=== PATIENT | male | born 1960 | race African-American/Black ===

== ENCOUNTER 2019-05-08 14:31 | Inpatient (IN) | payer OTHER ==
[2019-05-08 16:05] VITALS: BMI 25.8
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
[2019-05-08] MEDS ORDERED: IBUPROFEN 400 MG TABLET (FP) PO PRN (19:30)
[2019-05-08] MEDS ORDERED: MAGNESIUM HYDROX 2400MG/30ML ORAL SUSPENSION 30 ML CUP PO PRN (19:30)
[2019-05-08] MEDS ORDERED: BISMUTH SUBSALICYLATE 524 MG/30 ML UD PO PRN (19:30)
[2019-05-08] MEDS ORDERED: MAG HYDROX/AL HYDROX/SIMETH 30 ML UNIT-DOSE CUP PO PRN (19:30)
[2019-05-08] MEDS ORDERED: METHOCARBAMOL 500 MG TABLET PO PRN (19:30)
[2019-05-08] MEDS ORDERED: hydrOXYzine PAMOATE 25 MG CAPSULE (FP) PO PRN (19:30)
[2019-05-08] MEDS ORDERED: MENTHOL/PHENOL 1 EACH UD MM PRN (19:30)
[2019-05-08] MEDS ORDERED: MAGNESIUM CITRATE 300 ML BOTTLE PO PRN (19:30)
[2019-05-08] MEDS ORDERED: MELATONIN 5 MG TABLETS PO PRN (19:30)
[2019-05-08] MEDS ORDERED: NICOTINE POLACRILEX 2 MG GUM BUC PRN (19:30)
[2019-05-08] MEDS ORDERED: ACETAMINOPHEN 325 MG TABLET (FP) PO PRN ×2 (19:30)
--- NOTE | 2019-05-08 19:40 | PN ---
Teaching Attending Note Name of Resident: Anna Marie Cunningham ATTENDING PHYSICIAN STATEMENT I saw and evaluated the patient. I reviewed the resident's note and discussed the case with the resident. I agree with the resident's findings and plan as documented. SUBJECTIVE:pt here requesting detox from etoh use , reports drinking 20 beers / day x 37 years , latest use yesterday 5 am , reports blackouts, occasional tremors , denies seizures . cocaine : 600-700 $/week. cannabis : every 4-5 days . tobacco : 15 cigs/day - 1.5 ppd PMH : HTN, PE on Eliquis and ASA reports not taking meds in > 1 week , no PCP , usually gets meds from [facility]. HLD , depression. PSH: skin grafts OBJECTIVE: wnwd , li U E tremors , extensive scarring li U E/ LE , F contracture and deformity LLE Vital Signs - 24 hr 05/08/19 15:49 Temperature 99 F Pulse Rate 101 H Respiratory 20 Rate Blood Pressure 137/85 ASSESSMENT AND PLAN: Alcohol abuse - Valium detox med reconciliation to be done in am as pt's pharmacy of record is currently closed .
[2019-05-08] MEDS: THIAMINE HCL 100 MG TABLET (FP) PO SCH (21:48)
[2019-05-08] MEDS: diazePAM 5 MG TABLET PO SCH (21:48)
[2019-05-09] MEDS: diazePAM 5 MG TABLET PO SCH ×3 (06:09→22:20)
[2019-05-09 10:00] LABS: ALBUMIN 3.2 g/dl (3.4-5.0); BILIRUBIN,TOTAL 0.3 mg/dL (0.2-1); BLOOD UREA NITROGEN 24.8 mg/dL (7-18); CALCIUM 8.4 mg/dL (8.5-10.1); CREATININE 1.2 mg/dL (0.55-1.3); POTASSIUM 3.7 mmol/L (3.5-5.1)
[2019-05-09 10:11] LABS: HEMATOCRIT 42.7 % (35.4-49); HEMOGLOBIN 14.2 GM/dL (11.7-16.9); MCH 31.8 pg (25.7-33.7); MCHC 33.3 g/dl (32.0-35.9); MEAN CELL VOLUME 95.5 fl (80-96); MEAN PLT VOLUME 8.9 fl (7.5-11.1); PLATELET COUNT 263 K/MM3 (134-434); RBC 4.47 M/mm3 (4.00-5.60); RDW 14.1 % (11.9-15.9); WHITE BLOOD COUNT 8.9 K/mm3 (4.0-10.0)
[2019-05-09] MEDS: PRENATAL VITAMINS W/ FOLIC ACID TABLET (FP) PO SCH (10:35)
[2019-05-09] MEDS: NICOTINE 21 MG/24 HOURS TOPICAL PATCH TD SCH (10:36)
[2019-05-09] MEDS ORDERED: FLU VACCINE QUAD 60 MCG/0.5 ML (MDV 19-20) IM ONE (12:00)
[2019-05-09] MEDS ORDERED: PNEUMOCOCCAL 23 VACCINE 0.5 ML VIAL IM ONE (12:00)
[2019-05-09] MEDS ORDERED: PNEUMOC 13-VAL CONJ-DIP CRM/PF 0.5 ML DISP.SYRIN IM ONE (12:00)
--- NOTE | 2019-05-09 15:00 | PN ---
[facility] CIWA - CIWA Score Nausea/Vomitin-Mild Nausea/No Vomiting Muscle Tremors: 2 Anxiety: 2 Agitation: 2 Paroxysmal Sweats: No Perspiration Orientation: 0-Oriented Tacttile Disturbances: 1-Very Mild Itch/Numbness Auditory Disturbances: 0-None Visual Disturbances: 0-None Headache: 2-Mild CIWA-Ar Total Score: 10 S Progress Note (SOAP) Subjective: alert,irritable,anxious,interrupted sleep Objective: 05/09/19 14:59 Vital Signs Temperature 96.7 F L 05/09/19 13:45 Pulse Rate 64 05/09/19 13:45 Respiratory Rate 18 05/09/19 13:45 Blood Pressure 126/73 05/09/19 13:45 O2 Sat by Pulse Oximetry (%) 05/09/19 14:59 Laboratory Last Values WBC 8.9 K/mm3 (4.0-10.0) 05/09/19 08:00 RBC 4.47 M/mm3 (4.00-5.60) 05/09/19 08:00 Hgb 14.2 GM/dL (11.7-16.9) 05/09/19 08:00 Hct 42.7 % (35.4-49) 05/09/19 08:00 MCV 95.5 fl (80-96) 05/09/19 08:00 MCH 31.8 pg (25.7-33.7) 05/09/19 08:00 MCHC 33.3 g/dl (32.0-35.9) 05/09/19 08:00 RDW 14.1 % (11.9-15.9) 05/09/19 08:00 Plt Count 263 K/MM3 (134-434) 05/09/19 08:00 MPV 8.9 fl (7.5-11.1) 05/09/19 08:00 Sodium 142 mmol/L (136-145) 05/09/19 08:00 Potassium 3.7 mmol/L (3.5-5.1) 05/09/19 08:00 Chloride 107 mmol/L (98-107) 05/09/19 08:00 Carbon Dioxide 27 mmol/L (21-32) 05/09/19 08:00 Anion Gap 7 MMOL/L (8-16) L 05/09/19 08:00 BUN 24.8 mg/dL (7-18) H 05/09/19 08:00 Creatinine 1.2 mg/dL (0.55-1.3) 05/09/19 08:00 Est GFR (CKD-EPI)AfAm 77.33 05/09/19 08:00 Est GFR (CKD-EPI)NonAf 66.72 05/09/19 08:00 Random Glucose 124 mg/dL (74-106) H 05/09/19 08:00 Calcium 8.4 mg/dL (8.5-10.1) L 05/09/19 08:00 Total Bilirubin 0.3 mg/dL (0.2-1) 05/09/19 08:00 AST 13 U/L (15-37) L 05/09/19 08:00 ALT 32 U/L (13-61) 05/09/19 08:00 Alkaline Phosphatase 113 U/L (45-117) 05/09/19 08:00 Total Protein 6.0 g/dl (6.4-8.2) L 05/09/19 08:00 Albumin 3.2 g/dl (3.4-5.0) L 05/09/19 08:00 RPR Titer Nonreactive (NONREACTIVE) 05/09/19 08:00 HIV 1&2 Antibody Screen Negative 05/09/19 08:00 HIV P24 Antigen Negative 05/09/19 08:00 Assessment: 05/09/19 14:59 withdrawal symptom Plan: continue detox valium regimen,encourage fluid,repeat bmp in am,fasting glucose in am
[2019-05-09] MEDS ORDERED: diphenhydrAMINE HCL 25 MG CAPSULE (FP) PO ONE (20:11)
[2019-05-09] MEDS: THIAMINE HCL 100 MG TABLET (FP) PO SCH (22:20)
[2019-05-09] MEDS: ATORVASTATIN CA 20 MG TABLET (FP) PO SCH (22:21)
[2019-05-09] MEDS: diphenhydrAMINE HCL 50 MG CAPSULE PO SCH (22:21)
[2019-05-10] MEDS: diazePAM 5 MG TABLET PO SCH ×2 (05:46→17:35)
[2019-05-10] MEDS ORDERED: PATIENT'S OWN MEDICATION (NON-FORMULARY) (Lisinopril/Hydrochlorothiazide [Lisinopril-Hctz PO SCH (10:00)
[2019-05-10] MEDS ORDERED: APIXABAN 5 MG TABLET PO ONE (10:00)
[2019-05-10] MEDS: LISINOPRIL 20 MG TABLET (FP) PO SCH (10:52)
[2019-05-10] MEDS: HYDROCHLOROTHIAZIDE 25 MG TABLET (FP) PO SCH (10:52)
[2019-05-10] MEDS: PRENATAL VITAMINS W/ FOLIC ACID TABLET (FP) PO SCH (10:52)
[2019-05-10] MEDS: ASPIRIN 81 MG CHEWABLE TABLETS PO SCH (10:52)
[2019-05-10 10:55] LABS: BLOOD UREA NITROGEN 14.8 mg/dL (7-18); CREATININE 0.9 mg/dL (0.55-1.3); POTASSIUM 3.7 mmol/L (3.5-5.1)
[2019-05-10] MEDS: NICOTINE 21 MG/24 HOURS TOPICAL PATCH TD SCH ×2 (11:42→11:46)
--- NOTE | 2019-05-10 13:30 | PN ---
S CIWA - CIWA Score Nausea/Vomitin-No Nausea/No Vomiting Muscle Tremors: None Anxiety: 2 Agitation: 0-Normal Activity Paroxysmal Sweats: 3 Orientation: 0-Oriented Tacttile Disturbances: 0-None Auditory Disturbances: 0-None Visual Disturbances: 0-None Headache: 1-Very Mild CIWA-Ar Total Score: 6 BHS Progress Note (SOAP) Subjective: c/o sweats, anxiety, and headache. Objective: 05/10/19 13:28 Vital Signs 05/10/19 05/10/19 06:48 09:29 Temperature 97.2 F L 98.2 F Pulse Rate 84 93 H Respiratory 18 18 Rate Blood Pressure 136/74 135/77 Laboratory Last Values WBC 8.9 K/mm3 (4.0-10.0) 05/09/19 08:00 RBC 4.47 M/mm3 (4.00-5.60) 05/09/19 08:00 Hgb 14.2 GM/dL (11.7-16.9) 05/09/19 08:00 Hct 42.7 % (35.4-49) 05/09/19 08:00 MCV 95.5 fl (80-96) 05/09/19 08:00 MCH 31.8 pg (25.7-33.7) 05/09/19 08:00 MCHC 33.3 g/dl (32.0-35.9) 05/09/19 08:00 RDW 14.1 % (11.9-15.9) 05/09/19 08:00 Plt Count 263 K/MM3 (134-434) 05/09/19 08:00 MPV 8.9 fl (7.5-11.1) 05/09/19 08:00 Sodium 142 mmol/L (136-145) 05/10/19 07:40 Potassium 3.7 mmol/L (3.5-5.1) 05/10/19 07:40 Chloride 108 mmol/L (98-107) H 05/10/19 07:40 Carbon Dioxide 26 mmol/L (21-32) 05/10/19 07:40 Anion Gap 7 MMOL/L (8-16) L 05/10/19 07:40 BUN 14.8 mg/dL (7-18) 05/10/19 07:40 Creatinine 0.9 mg/dL (0.55-1.3) 05/10/19 07:40 Est GFR (CKD-EPI)AfAm 109.50 05/10/19 07:40 Est GFR (CKD-EPI)NonAf 94.48 05/10/19 07:40 Random Glucose 113 mg/dL (74-106) H 05/10/19 07:40 Fasting Glucose 114 mg/dL (74-106) H 05/10/19 07:40 Calcium 8.0 mg/dL (8.5-10.1) L 05/10/19 07:40 Total Bilirubin 0.3 mg/dL (0.2-1) 05/09/19 08:00 AST 13 U/L (15-37) L 05/09/19 08:00 ALT 32 U/L (13-61) 05/09/19 08:00 Alkaline Phosphatase 113 U/L (45-117) 05/09/19 08:00 Total Protein 6.0 g/dl (6.4-8.2) L 05/09/19 08:00 Albumin 3.2 g/dl (3.4-5.0) L 05/09/19 08:00 RPR Titer Nonreactive (NONREACTIVE) 05/09/19 08:00 HIV 1&2 Antibody Screen Negative 05/09/19 08:00 HIV P24 Antigen Negative 05/09/19 08:00 Labs noted. Assessment: 05/10/19 13:28 AOX3, in no acute respiratory distress. Full ROM, ambulating in the unit. withdrawal symptoms. For d/c tomorrow. Plan: continue detox. D/C in AM.
[2019-05-10] MEDS: APIXABAN 5 MG TABLET PO SCH (15:24)
[2019-05-10] MEDS ORDERED: diphenhydrAMINE HCL 25 MG CAPSULE (FP) PO ONE (21:14)
[2019-05-10] MEDS: THIAMINE HCL 100 MG TABLET (FP) PO SCH (22:02)
[2019-05-10] MEDS: ATORVASTATIN CA 20 MG TABLET (FP) PO SCH (22:02)
[2019-05-10] MEDS: diphenhydrAMINE HCL 50 MG CAPSULE PO SCH (22:03)
[2019-05-10] MEDS: diazePAM 5 MG TABLET PO PRN (22:04)
[2019-05-11] MEDS ORDERED: diazePAM 5 MG TABLET PO ONE (06:00)
[2019-05-11 06:47] VITALS: TEMP 97
[2019-05-11 09:42] VITALS: BP 111/71; PULSE 84
[2019-05-11] MEDS: NICOTINE 21 MG/24 HOURS TOPICAL PATCH TD SCH (10:18)
[2019-05-11] MEDS: diazePAM 5 MG TABLET PO PRN (10:21)
[2019-05-11] MEDS: APIXABAN 5 MG TABLET PO SCH (10:21)
[2019-05-11] MEDS: ASPIRIN 81 MG CHEWABLE TABLETS PO SCH (10:22)
[2019-05-11] MEDS: PRENATAL VITAMINS W/ FOLIC ACID TABLET (FP) PO SCH (10:22)
[2019-05-11] MEDS: LISINOPRIL 20 MG TABLET (FP) PO SCH (10:22)
[2019-05-11] MEDS: HYDROCHLOROTHIAZIDE 25 MG TABLET (FP) PO SCH (10:22)
--- NOTE | 2019-05-11 11:59 | DS ---
[facility] Detox Discharge Summary Admission Date: 05/08/19 Discharge Date: 05/11/19 - History Present History: Alcohol Dependence Additional Comments: 58 years old male admitted on 05/08/19 for alcohol withdrawal sx management treated with valium detox regimen patient is alert oriented x 3 respiratory clear lung bilaterally on auscultation abdomen soft no rebound tenderness skin warm and dry - Physical Exam Results Vital Signs: Vital Signs Temperature 97 F L 05/11/19 09:41 Pulse Rate 84 05/11/19 09:41 Respiratory Rate 18 05/11/19 09:41 Blood Pressure 111/71 05/11/19 09:41 O2 Sat by Pulse Oximetry (%) Pertinent Admission Physical Exam Findings: alcohol withdrawal sx Laboratory Last Values WBC 8.9 K/mm3 (4.0-10.0) 05/09/19 08:00 RBC 4.47 M/mm3 (4.00-5.60) 05/09/19 08:00 Hgb 14.2 GM/dL (11.7-16.9) 05/09/19 08:00 Hct 42.7 % (35.4-49) 05/09/19 08:00 MCV 95.5 fl (80-96) 05/09/19 08:00 MCH 31.8 pg (25.7-33.7) 05/09/19 08:00 MCHC 33.3 g/dl (32.0-35.9) 05/09/19 08:00 RDW 14.1 % (11.9-15.9) 05/09/19 08:00 Plt Count 263 K/MM3 (134-434) 05/09/19 08:00 MPV 8.9 fl (7.5-11.1) 05/09/19 08:00 Sodium 142 mmol/L (136-145) 05/10/19 07:40 Potassium 3.7 mmol/L (3.5-5.1) 05/10/19 07:40 Chloride 108 mmol/L (98-107) H 05/10/19 07:40 Carbon Dioxide 26 mmol/L (21-32) 05/10/19 07:40 Anion Gap 7 MMOL/L (8-16) L 05/10/19 07:40 BUN 14.8 mg/dL (7-18) 05/10/19 07:40 Creatinine 0.9 mg/dL (0.55-1.3) 05/10/19 07:40 Est GFR (CKD-EPI)AfAm 109.50 05/10/19 07:40 Est GFR (CKD-EPI)NonAf 94.48 05/10/19 07:40 Random Glucose 113 mg/dL (74-106) H 05/10/19 07:40 Fasting Glucose 114 mg/dL (74-106) H 05/10/19 07:40 Calcium 8.0 mg/dL (8.5-10.1) L 05/10/19 07:40 Total Bilirubin 0.3 mg/dL (0.2-1) 05/09/19 08:00 AST 13 U/L (15-37) L 05/09/19 08:00 ALT 32 U/L (13-61) 05/09/19 08:00 Alkaline Phosphatase 113 U/L (45-117) 05/09/19 08:00 Total Protein 6.0 g/dl (6.4-8.2) L 05/09/19 08:00 Albumin 3.2 g/dl (3.4-5.0) L 05/09/19 08:00 RPR Titer Nonreactive (NONREACTIVE) 05/09/19 08:00 HIV 1&2 Antibody Screen Negative 05/09/19 08:00 HIV P24 Antigen Negative 05/09/19 08:00 lab noted glucose elevation - Treatment Hospital Course: Detox Protocol Followed, Detoxed Safely, Responded well, Discharged Condition Good, Rehab Referral Accepted Patient has Accepted [facility] Ref[facility] - Medication Discharge Medications: Ambulatory Orders Apixaban [Eliquis] 5 mg PO DAILY 05/08/19 Aspirin [ASA -] 81 mg PO DAILY 05/08/19 Atorvastatin Ca [Lipitor] 20 mg PO HS 05/08/19 Diphenhydramine [Benadryl Capsule -] 50 mg PO HS 05/08/19 Lisinopril/Hydrochlorothiazide [Lisinopril-Hctz 20-25 mg Tab] 1 each PO DAILY - Diagnosis (1) Alcohol dependence, uncomplicated Current Visit: Yes Status: Acute (2) Peripheral vascular disease Current Visit: Yes Status: Chronic (3) Hypertension Current Visit: Yes Status: Chronic Qualifiers: Hypertension type: essential hypertension Qualified Code(s): I10 - Essential (primary) hypertension (4) Hyperlipidemia Current Visit: Yes Status: Chronic Qualifiers: Hyperlipidemia type: unspecified Qualified Code(s): E78.5 - Hyperlipidemia , unspecified - AMA Did Patient Leave Against Medical Advice: No CIWA Score - CIWA Score Nausea/Vomitin-No Nausea/No Vomiting Muscle Tremors: 1-None Visible, but [place] Anxiety: 1-Mildly Anxious Agitation: 0-Normal Activity Paroxysmal Sweats: No Perspiration Orientation: 0-Oriented Tacttile Disturbances: 0-None Auditory Disturbances: 0-None Visual Disturbances: 0-None Headache: 0-None Present CIWA-Ar Total Score: 2
== END 2019-05-11 14:00 | disposition other institution (70) | DRG 774 ==
LOC: YASAS 14:31 → Y3N 19:50
PROVIDERS: ADMIT Allergy & Immunology; ATTEND Allergy & Immunology
PROC: HZ2ZZZZ Detoxification Services for Substance Abuse Treatment (ICD-10-PCS; principal; 2019-05-08)
DX: F10.230 Alcohol dependence with withdrawal, uncomplicated (principal); F14.20 Cocaine dependence, uncomplicated; F12.20 Cannabis dependence, uncomplicated; F17.210 Nicotine dependence, cigarettes, uncomplicated; I10 Essential (primary) hypertension; E78.5 Hyperlipidemia, unspecified; I73.9 Peripheral vascular disease, unspecified; Z86.711 Personal history of pulmonary embolism; Z79.01 Long term (current) use of anticoagulants; Z79.82 Long term (current) use of aspirin; Z91.013 Allergy to seafood; Z88.0 Allergy status to penicillin
CPT/HCPCS: 36415; 80048; 80053; 82947; 85027; 86593; 87389; 90732; G0009; Q2036

== ENCOUNTER 2019-05-11 13:52 | Inpatient (IN) | payer OTHER ==
--- NOTE | 2019-05-11 12:03 | HP ---
[facility] Rehab Assess/Revision - Admission History Admitted to Rehab from: [facility] Date of Admission to Rehab: 05/11/19 - Findings Detox History & Physical reviewed: Yes Concur with findings: Yes Comments/Additional Findings: transferred from detox to rehab admission as per protocol Inpatient Rehab Admission - Rehab Decision to Admit Inpatient rehab admission?: Yes - Initial Determination Are CD services needed?: Yes Free of communicable disease: Yes Not in need of hospitalization: Yes - Rehab Admission Criteria Previous failed treatment: Yes Poor recovery environment: Yes Comorbidities: Yes Lacks judgement: Yes Patient is meeting Inpatient Rehab admission criteria:: Yes
[~2019-05-11 13:52] MED LIST: LOPERAMIDE HCL 2 MG CAPSULE PO PRN; MAGNESIUM CITRATE 300 ML BOTTLE PO PRN; MAGNESIUM HYDROX 2400MG/30ML ORAL SUSPENSION 30 ML CUP PO PRN; MENTHOL/PHENOL 1 EACH UD MM PRN; NICOTINE POLACRILEX 4 MG GUM BC PRN; P-EPHED 60MG/TRIPROLIDI 2.5MG TABLET PO PRN
[2019-05-11] MEDS: ATORVASTATIN CA 20 MG TABLET (FP) PO SCH (21:02)
[2019-05-11] MEDS: THIAMINE HCL 100 MG TABLET (FP) PO SCH (21:02)
[2019-05-11] MEDS: MELATONIN 5 MG TABLETS PO PRN (21:03)
[2019-05-11] MEDS: MAG HYDROX/AL HYDROX/SIMETH 30 ML UNIT-DOSE CUP PO PRN (22:41)
--- NOTE | 2019-05-12 10:27 | PN ---
[facility] Progress Note Note: Pt is a 58 y/o male admitted to [address] [place] [address] rehab from [facility] [place] [facility] on 05/11/19 after completion. Pt is currently on Eliquis 5 mg po daily since from detox and this life underwriter called his home pharmacy today and medication list faxed to [address] [place] [address]. Pt was on Eliquis 10 mg po BID for 6 days then 5 mg po BID(verified from another faxed Rx from pharmacy by prescriber Dr. Halima Phillips ), last filled on 11/12/18(120 tabs x 30 days) . Copies in patient's chart. This life underwriter spoke to pt who stated he has no primary care provider and goes to the emergency room at [facility] or [facility] for care. Reports he has not been taking the Eliquis and was in "[facility] for 1 1/2 days 1/1/2 weeks ago and had comprehensive testings done- CTScan w/contrast, CXR,Holter monitor,EKG and stress test and they say my arteries were clean, no clot". He stated the doctor recommended to take the blood thinner but he said "why? I'm exercising,I' m all clear,why do I have to take blood thinner?". " Well If if I have to take it while I'm here(at [facility]), I'll take it. After I leave here, that's it. I' m not taking it". Pt is a poor historian and unable to provide timeline of treatment when asked by this life underwriter. This life underwriter called [facility] to speak with the prescribing doctor Dr. Halima Phillips at [phone] but unable to get through. No voicemail availbale and no response. Vital Signs - 24 hr 05/11/19 05/12/19 05/12/19 14:20 00:30 03:30 Temperature Pulse Rate 99 H Respiratory 18 18 Rate Blood Pressure 142/69 05/12/19 07:37 Temperature 97.8 F Pulse Rate 93 H Respiratory 18 Rate Blood Pressure 117/68 alert o x 3 nad Use of Wheelchair for mobility Discussed with Dr. Kennedy about pt's poc. Recommendation: resident doctor will see pt today for Consult.
[2019-05-12] MEDS: LISINOPRIL 20 MG TABLET (FP) PO SCH (11:00)
[2019-05-12] MEDS: NICOTINE 21 MG/24 HOURS TOPICAL PATCH TD SCH (11:00)
[2019-05-12] MEDS: PRENATAL VITAMINS W/ FOLIC ACID TABLET (FP) PO SCH (11:00)
[2019-05-12] MEDS: HYDROCHLOROTHIAZIDE 25 MG TABLET (FP) PO SCH (11:00)
[2019-05-12] MEDS: ASPIRIN 81 MG CHEWABLE TABLETS PO SCH (11:00)
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
[2019-05-12] MEDS ORDERED: APIXABAN 5 MG TABLET PO SCH ×2 (14:15→22:00)
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
--- NOTE | 2019-05-12 15:10 | PN ---
FERNANDA Progress Note Note: received [facility] pharmacist called apixaban 5mg po daily is not manufactory recommended that bid divided dosage investment underwriter called patient preferred pharmacy [phone] patient last received apixaban October 2018 patient received 10mg po bid x 6 days on October 2018 that 5mg po bid ended on late October 2018 patient has not received apixaban since November 2018 investment underwriter called [id number] for Dr. Varghese without success case discussed with Dr Graves apixaban will be discontinued
[2019-05-12] MEDS: MELATONIN 5 MG TABLETS PO PRN (21:49)
[2019-05-12] MEDS: ATORVASTATIN CA 20 MG TABLET (FP) PO SCH (21:49)
[2019-05-12] MEDS: THIAMINE HCL 100 MG TABLET (FP) PO SCH (21:49)
[2019-05-12] MEDS: SUVOREXANT 10 MG TABLET PO PRN (21:50)
[2019-05-13] MEDS: MAG HYDROX/AL HYDROX/SIMETH 30 ML UNIT-DOSE CUP PO PRN (00:21)
[2019-05-13] MEDS: HYDROCHLOROTHIAZIDE 25 MG TABLET (FP) PO SCH (11:42)
[2019-05-13] MEDS: ASPIRIN 81 MG CHEWABLE TABLETS PO SCH (11:42)
[2019-05-13] MEDS: LISINOPRIL 20 MG TABLET (FP) PO SCH (11:42)
[2019-05-13] MEDS: PRENATAL VITAMINS W/ FOLIC ACID TABLET (FP) PO SCH (11:42)
[2019-05-13] MEDS: NICOTINE 21 MG/24 HOURS TOPICAL PATCH TD SCH (11:43)
--- NOTE | 2019-05-13 11:53 | PN ---
Teaching Attending Note Name of Resident: Ava Graves ATTENDING PHYSICIAN STATEMENT I saw and evaluated the patient. I reviewed the resident's note and discussed the case with the resident. I agree with the resident's findings and plan as documented. SUBJECTIVE: I agree with subjective findings OBJECTIVE: I agree with objective findings of resident ASSESSMENT AND PLAN: I agree with plan of care and treatment of patient proposed by resident. Dr. Kennedy
[2019-05-13] MEDS: ATORVASTATIN CA 20 MG TABLET (FP) PO SCH (21:53)
[2019-05-13] MEDS: THIAMINE HCL 100 MG TABLET (FP) PO SCH (21:53)
[2019-05-13] MEDS: MELATONIN 5 MG TABLETS PO PRN (21:53)
[2019-05-13] MEDS: SUVOREXANT 10 MG TABLET PO PRN (21:55)
[2019-05-14] MEDS: LISINOPRIL 20 MG TABLET (FP) PO SCH (11:14)
[2019-05-14] MEDS: PRENATAL VITAMINS W/ FOLIC ACID TABLET (FP) PO SCH (11:14)
[2019-05-14] MEDS: ASPIRIN 81 MG CHEWABLE TABLETS PO SCH (11:14)
[2019-05-14] MEDS: HYDROCHLOROTHIAZIDE 25 MG TABLET (FP) PO SCH (11:14)
[2019-05-14] MEDS: NICOTINE 21 MG/24 HOURS TOPICAL PATCH TD SCH (11:15)
[2019-05-14] MEDS: ATORVASTATIN CA 20 MG TABLET (FP) PO SCH (21:53)
[2019-05-14] MEDS: THIAMINE HCL 100 MG TABLET (FP) PO SCH (21:53)
[2019-05-14] MEDS: MELATONIN 5 MG TABLETS PO PRN (21:53)
[2019-05-14] MEDS: SUVOREXANT 10 MG TABLET PO PRN (21:54)
[2019-05-15] MEDS: MAG HYDROX/AL HYDROX/SIMETH 30 ML UNIT-DOSE CUP PO PRN (02:36)
[2019-05-15] MEDS: PRENATAL VITAMINS W/ FOLIC ACID TABLET (FP) PO SCH (10:06)
[2019-05-15] MEDS: LISINOPRIL 20 MG TABLET (FP) PO SCH (10:06)
[2019-05-15] MEDS: HYDROCHLOROTHIAZIDE 25 MG TABLET (FP) PO SCH (10:06)
[2019-05-15] MEDS: NICOTINE 21 MG/24 HOURS TOPICAL PATCH TD SCH (10:06)
[2019-05-15] MEDS: ASPIRIN 81 MG CHEWABLE TABLETS PO SCH (10:07)
[2019-05-15] MEDS: ATORVASTATIN CA 20 MG TABLET (FP) PO SCH (21:31)
[2019-05-15] MEDS: THIAMINE HCL 100 MG TABLET (FP) PO SCH (21:32)
[2019-05-15] MEDS: MELATONIN 5 MG TABLETS PO PRN (21:32)
[2019-05-15] MEDS: SUVOREXANT 10 MG TABLET PO PRN (21:33)
[2019-05-15] MEDS: ACETAMINOPHEN 325 MG TABLET (FP) PO PRN (22:53)
[2019-05-16] MEDS: ASPIRIN 81 MG CHEWABLE TABLETS PO SCH (10:58)
[2019-05-16] MEDS: LISINOPRIL 20 MG TABLET (FP) PO SCH (10:58)
[2019-05-16] MEDS: PRENATAL VITAMINS W/ FOLIC ACID TABLET (FP) PO SCH (10:58)
[2019-05-16] MEDS: HYDROCHLOROTHIAZIDE 25 MG TABLET (FP) PO SCH (10:58)
[2019-05-16] MEDS: NICOTINE 21 MG/24 HOURS TOPICAL PATCH TD SCH (10:58)
[2019-05-16] MEDS: guaiFENesin 200 MG/10 ML 10 ML UNIT-DOSE CUPS PO PRN ×2 (12:33→23:48)
[2019-05-16] MEDS: MAG HYDROX/AL HYDROX/SIMETH 30 ML UNIT-DOSE CUP PO PRN (15:02)
[2019-05-16] MEDS: ATORVASTATIN CA 20 MG TABLET (FP) PO SCH (21:47)
[2019-05-16] MEDS: THIAMINE HCL 100 MG TABLET (FP) PO SCH (21:47)
[2019-05-16] MEDS: MELATONIN 5 MG TABLETS PO PRN (21:47)
[2019-05-17] MEDS: PRENATAL VITAMINS W/ FOLIC ACID TABLET (FP) PO SCH (10:11)
[2019-05-17] MEDS: HYDROCHLOROTHIAZIDE 25 MG TABLET (FP) PO SCH (10:11)
[2019-05-17] MEDS: LISINOPRIL 20 MG TABLET (FP) PO SCH (10:11)
[2019-05-17] MEDS: ASPIRIN 81 MG CHEWABLE TABLETS PO SCH (10:11)
[2019-05-17] MEDS: NICOTINE 21 MG/24 HOURS TOPICAL PATCH TD SCH (10:12)
[2019-05-17] MEDS: ACETAMINOPHEN 325 MG TABLET (FP) PO PRN (18:33)
[2019-05-17] MEDS: ATORVASTATIN CA 20 MG TABLET (FP) PO SCH (21:38)
[2019-05-17] MEDS: THIAMINE HCL 100 MG TABLET (FP) PO SCH (21:38)
[2019-05-17] MEDS: MELATONIN 5 MG TABLETS PO PRN (21:38)
[2019-05-18] MEDS: MAG HYDROX/AL HYDROX/SIMETH 30 ML UNIT-DOSE CUP PO PRN (01:21)
--- NOTE | 2019-05-18 09:51 | PN ---
[facility] Progress Note Note: Psychiatric nurse practitioner note: Patient continues to report difficulty sleeping despite accepting belsomra 10mg HS. Will d/c Belsomra 10mg and will order Belsomra 15mg HS. Patient educated on the importance of proper sleep hygiene. Benefits and side effects discussed. Verbal consent given. Time: 20 minutes
[2019-05-18] MEDS: PRENATAL VITAMINS W/ FOLIC ACID TABLET (FP) PO SCH (10:34)
[2019-05-18] MEDS: NICOTINE 21 MG/24 HOURS TOPICAL PATCH TD SCH (10:34)
[2019-05-18] MEDS: HYDROCHLOROTHIAZIDE 25 MG TABLET (FP) PO SCH (10:35)
[2019-05-18] MEDS: ASPIRIN 81 MG CHEWABLE TABLETS PO SCH (10:35)
[2019-05-18] MEDS: LISINOPRIL 20 MG TABLET (FP) PO SCH (10:35)
[2019-05-18] MEDS: guaiFENesin 200 MG/10 ML 10 ML UNIT-DOSE CUPS PO PRN (17:50)
[2019-05-18] MEDS: THIAMINE HCL 100 MG TABLET (FP) PO SCH (21:29)
[2019-05-18] MEDS: MELATONIN 5 MG TABLETS PO PRN (21:29)
[2019-05-18] MEDS: ATORVASTATIN CA 20 MG TABLET (FP) PO SCH (21:29)
[2019-05-18] MEDS: SUVOREXANT 15 MG TABLET PO PRN (21:30)
[2019-05-19] MEDS: ASPIRIN 81 MG CHEWABLE TABLETS PO SCH (11:04)
[2019-05-19] MEDS: PRENATAL VITAMINS W/ FOLIC ACID TABLET (FP) PO SCH (11:04)
[2019-05-19] MEDS: LISINOPRIL 20 MG TABLET (FP) PO SCH (11:04)
[2019-05-19] MEDS: HYDROCHLOROTHIAZIDE 25 MG TABLET (FP) PO SCH (11:04)
[2019-05-19] MEDS: NICOTINE 21 MG/24 HOURS TOPICAL PATCH TD SCH (11:05)
[2019-05-19] MEDS: ATORVASTATIN CA 20 MG TABLET (FP) PO SCH (21:50)
[2019-05-19] MEDS: MELATONIN 5 MG TABLETS PO PRN (21:50)
[2019-05-19] MEDS: SUVOREXANT 15 MG TABLET PO PRN (21:51)
[2019-05-19] MEDS: THIAMINE HCL 100 MG TABLET (FP) PO SCH (21:53)
[2019-05-20] MEDS: LISINOPRIL 20 MG TABLET (FP) PO SCH (10:51)
[2019-05-20] MEDS: HYDROCHLOROTHIAZIDE 25 MG TABLET (FP) PO SCH (10:51)
[2019-05-20] MEDS: PRENATAL VITAMINS W/ FOLIC ACID TABLET (FP) PO SCH (10:51)
[2019-05-20] MEDS: NICOTINE 21 MG/24 HOURS TOPICAL PATCH TD SCH (10:51)
[2019-05-20] MEDS: ASPIRIN 81 MG CHEWABLE TABLETS PO SCH (10:51)
[2019-05-20] MEDS: guaiFENesin 200 MG/10 ML 10 ML UNIT-DOSE CUPS PO PRN (15:12)
[2019-05-20] MEDS: THIAMINE HCL 100 MG TABLET (FP) PO SCH (21:17)
[2019-05-20] MEDS: ATORVASTATIN CA 20 MG TABLET (FP) PO SCH (21:17)
[2019-05-20] MEDS: SUVOREXANT 15 MG TABLET PO PRN (21:17)
[2019-05-20] MEDS: MELATONIN 5 MG TABLETS PO PRN (21:17)
[2019-05-21] MEDS: HYDROCHLOROTHIAZIDE 25 MG TABLET (FP) PO SCH (11:15)
[2019-05-21] MEDS: NICOTINE 21 MG/24 HOURS TOPICAL PATCH TD SCH (11:15)
[2019-05-21] MEDS: PRENATAL VITAMINS W/ FOLIC ACID TABLET (FP) PO SCH (11:15)
[2019-05-21] MEDS: ASPIRIN 81 MG CHEWABLE TABLETS PO SCH (11:15)
[2019-05-21] MEDS: LISINOPRIL 20 MG TABLET (FP) PO SCH (11:15)
[2019-05-21] MEDS: MELATONIN 5 MG TABLETS PO PRN (21:49)
[2019-05-21] MEDS: THIAMINE HCL 100 MG TABLET (FP) PO SCH (21:49)
[2019-05-21] MEDS: ATORVASTATIN CA 20 MG TABLET (FP) PO SCH (21:50)
[2019-05-21] MEDS: SUVOREXANT 15 MG TABLET PO PRN (21:51)
[2019-05-22] MEDS: ASPIRIN 81 MG CHEWABLE TABLETS PO SCH (10:43)
[2019-05-22] MEDS: PRENATAL VITAMINS W/ FOLIC ACID TABLET (FP) PO SCH (10:43)
[2019-05-22] MEDS: NICOTINE 21 MG/24 HOURS TOPICAL PATCH TD SCH (10:43)
[2019-05-22] MEDS: HYDROCHLOROTHIAZIDE 25 MG TABLET (FP) PO SCH (10:46)
[2019-05-22] MEDS: LISINOPRIL 20 MG TABLET (FP) PO SCH (10:46)
[2019-05-22] MEDS: ATORVASTATIN CA 20 MG TABLET (FP) PO SCH (21:58)
[2019-05-22] MEDS: THIAMINE HCL 100 MG TABLET (FP) PO SCH (21:58)
[2019-05-22] MEDS: MELATONIN 5 MG TABLETS PO PRN (21:59)
[2019-05-22] MEDS: SUVOREXANT 15 MG TABLET PO PRN (21:59)
[2019-05-23 07:10] VITALS: BP 107/57; PULSE 87; TEMP 97.7
[2019-05-23] MEDS: HYDROCHLOROTHIAZIDE 25 MG TABLET (FP) PO SCH (10:00)
[2019-05-23] MEDS: ASPIRIN 81 MG CHEWABLE TABLETS PO SCH (10:00)
[2019-05-23] MEDS: PRENATAL VITAMINS W/ FOLIC ACID TABLET (FP) PO SCH (10:00)
[2019-05-23] MEDS: LISINOPRIL 20 MG TABLET (FP) PO SCH (10:00)
[2019-05-23] MEDS: NICOTINE 21 MG/24 HOURS TOPICAL PATCH TD SCH (10:00)
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
== END 2019-05-23 10:00 | disposition home or self-care (01) | DRG 772 ==
LOC: YASAS 13:52 → Y5N 13:53
PROVIDERS: ADMIT Neuromusculoskeletal Medicine & OMM; ATTEND Neuromusculoskeletal Medicine & OMM
PROC: HZ42ZZZ Group Counseling for Substance Abuse Treatment, Cognitive-Behavioral (ICD-10-PCS; principal; 2019-05-11)
DX: F10.20 Alcohol dependence, uncomplicated (principal); F14.20 Cocaine dependence, uncomplicated; F17.210 Nicotine dependence, cigarettes, uncomplicated; F32.9 Major depressive disorder, single episode, unspecified; I10 Essential (primary) hypertension; E78.5 Hyperlipidemia, unspecified; I73.9 Peripheral vascular disease, unspecified; M21.951 Unspecified acquired deformity of right thigh; M21.952 Unspecified acquired deformity of left thigh; Z86.711 Personal history of pulmonary embolism; Z79.82 Long term (current) use of aspirin; Z88.0 Allergy status to penicillin; Z91.013 Allergy to seafood; Z99.3 Dependence on wheelchair; Z99.89 Dependence on other enabling machines and devices